=== PATIENT | male | born 1990 | race African-American/Black ===

== ENCOUNTER 2024-09-05 16:33 | Emergency (ER) | payer OTHER ==
[~2024-09-05] VITALS: Ht 188 cm; Wt 85.0 kg
[2024-09-05 16:39] VITALS: O2SAT 98
[2024-09-05 17:39] LABS: BASOPHILS % 0.3 % (0.0-2.0); EOSINOPHILS % 2.6 % (0.0-5.0); HEMATOCRIT. 45.6 % (42.0-52.0); HEMOGLOBIN. 15.1 g/dL (14.0-18.0); LYMPHOCYTES % 35.3 % (20.0-50.0); MEAN CORPUSCULAR HEMOGLOBIN 31.2 pg (28.0-32.0); MEAN CORPUSCULAR HGB CONC 33.1 g/dL (31.0-37.0); MEAN CORPUSCULAR VOLUME 94.2 fL (80.0-94.0); MEAN PLATELET VOLUME 9.1 fl (7.4-10.4); MONOCYTES % 6.1 % (2.0-8.0); NEUTROPHILS % 55.7 % (40.0-76.0); PLATELET 310 x1000/uL (130-400); RED BLOOD CELL COUNT 4.85 mill/uL (4.7-6.1); RED CELL DISTRIBUTION WIDTH 13.6 % (11.6-14.6)
[2024-09-05 17:48] LABS: D-DIMER 0.31 mg/L FEU (<0.50); PROTHROMBIN TIME 10.7 sec (9.6-11.0)
[2024-09-05 17:49] LABS: CHLORIDE 106 mEq/L (98-107); POTASSIUM 4.1 mEq/L (3.5-5.1); SODIUM 142 mEq/L (136-145)
[2024-09-05 17:50] LABS: CALCIUM 9.3 mg/dL (8.7-10.4); CARBON DIOXIDE 27 mEq/L (21-32)
[2024-09-05 17:55] LABS: CREATININE 1.2 mg/dL (0.6-1.3); GLUCOSE 120 mg/dL (70-105); UREA NITROGEN BLOOD 17 mg/dL (9-23)
[2024-09-05 18:09] LABS: TROPONIN I HIGH SENSITIVITY < 4 ng/L (3.0-53)
[2024-09-05] MEDS ORDERED: CYCL10TA21 MT (18:51)
[2024-09-05 19:04] VITALS: BP 142/70; PULSE 68; RESP 16; TEMP 36.89184; O2SAT 98
== END 2024-09-05 19:08 | disposition home or self-care (01) ==
LOC: ER 16:33
DX: R68.84 Jaw pain (principal); F14.90 Cocaine use, unspecified, uncomplicated; Z72.0 Tobacco use
CPT/HCPCS: 36415; 71045; 80048; 84484; 85025; 85379; 93005; 99285

== ENCOUNTER 2024-09-05 21:26 | Emergency (ER) | payer OTHER ==
[~2024-09-05] VITALS: Ht 177.8 cm; Wt 91.0 kg
[~2024-09-05 21:26] MED LIST: CYCL10TA21 MT
[2024-09-05 21:29] VITALS: BP 148/82; PULSE 82; RESP 16; TEMP 97.9; O2SAT 100
== END 2024-09-06 08:00 | disposition left against medical advice (07) ==
LOC: ER 21:26
DX: R51.9 Headache, unspecified (principal); Z53.21 Procedure and treatment not carried out due to patient leaving prior to being seen by health care provider
CPT/HCPCS: 99283